=== PATIENT | male | born 1965 | race Caucasian/White ===

== ENCOUNTER 2016-10-27 18:40 | Emergency (ER) | payer BC | END 2016-10-27 21:00 | disposition home or self-care (01) | LOC: ER 18:40 | DX: L91.8 Other hypertrophic disorders of the skin (principal); I10 Essential (primary) hypertension; E78.5 Hyperlipidemia, unspecified; E11.9 Type 2 diabetes mellitus without complications; Z98.52 Vasectomy status; Z79.02 Long term (current) use of antithrombotics/antiplatelets; Z79.899 Other long term (current) drug therapy; Z79.82 Long term (current) use of aspirin; Z88.8 Allergy status to other drugs, medicaments and biological substances; Z79.84 Long term (current) use of oral hypoglycemic drugs | CPT/HCPCS: 11400; 99070; 99283-25 ==